=== PATIENT | male | born 1965 | race African-American/Black ===

== ENCOUNTER 2020-04-02 14:17 | Emergency (ER) | payer OTHER, SELFPAY ==
[2020-04-02 20:31] LABS: SARS-CoV-2 MS2 Positive; SARS-CoV-2 N Gene Negative; SARS-CoV-2 S Gene Negative; SARS-CoV-2 by NAA Not Detected (NotDetected); SARS-CoV-2 orf1ab Negative
== END 2020-04-02 15:09 | disposition home or self-care (01) ==
LOC: ERS 14:17
DX: Z20.828 Contact with and (suspected) exposure to other viral communicable diseases (principal); F17.210 Nicotine dependence, cigarettes, uncomplicated
CPT/HCPCS: 87635; 99283; U0003

== ENCOUNTER 2021-11-09 20:18 | Emergency (ER) | payer SELFPAY ==
[2021-11-09] MEDS ORDERED: Ketorolac Tromethamine 30 MG/ML VIAL ONE (21:00)
[2021-11-09] MEDS ORDERED: Morphine 4 MG/ML VIAL ONE (21:00)
== END 2021-11-09 21:25 | disposition home or self-care (01) ==
LOC: ERS 20:18
DX: M54.6 Pain in thoracic spine (principal); G89.29 Other chronic pain; F17.210 Nicotine dependence, cigarettes, uncomplicated
CPT/HCPCS: 96372; 99283; J1885; J2270